=== PATIENT | male | born 1960 | race African-American/Black ===

== ENCOUNTER 2024-05-10 13:18 | Inpatient (IN) | payer BC ==
[~2024-05-10] VITALS: Ht 177.8 cm; Wt 157.4 kg
[2024-05-10] VITALS (9 sets, daily range): BP systolic 118–156; BP diastolic 57–100; TEMP 101–103; O2SAT 91–98
[2024-05-10 14:14] LABS: BASOPHILS % (AUTO) 0.5 % (0.0-2.0); HEMATOCRIT 38 % (39-51); HEMOGLOBIN 12.1 g/dL (13.5-17.5); LYMPHOCYTES # (AUTO) 0.5 K/uL (0.8-4.8); LYMPHOCYTES % (AUTO) 12.1 % (20.0-44.0); MEAN CORPUSCULAR HEMOGLOBIN 29 PG (26.0-33.0); MEAN CORPUSCULAR HGB CONC 32 g/dl (31.0-36.0); MEAN CORPUSCULAR VOLUME 91 fL (80-96); MONOCYTES # (AUTO) 0.6 K/uL (0.1-1.30); MONOCYTES % (AUTO) 16.5 % (2.0-12.0); NEUTROPHILS # (AUTO) 2.6 K/uL (1.8-8.9); NEUTROPHILS % (AUTO) 69.9 % (43.0-81.0); PLATELET COUNT (AUTO) 254 K/uL (150-450); RED BLOOD CELL COUNT(AUTO) 4.14 MIL/uL (4.5-6.0); RED CELL DISTRIBUTION WIDTH 14.9 % (11.5-15.0); WHITE BLOOD COUNT (AUTO) 3.7 K/uL (4.3-11.0)
[2024-05-10] MEDS ORDERED: FUROSEMIDE 40 MG/4 ML VIAL ONE (14:16)
[2024-05-10] MEDS: FUROSEMIDE 40 MG/4 ML VIAL IV ONE (14:21)
[2024-05-10 14:30] LABS: CALCIUM, SERUM 8.8 mg/dL (8.5-10.1); CARBON DIOXIDE 29 mmol/L (21-32); CHLORIDE 105 mmol/L (98-107); CREATININE 1.3 mg/dL (0.6-1.3); GLUCOSE 95 mg/dL (74-106); INR 1.3 (0.91-1.10); PARTIAL THROMBOPLASTIN TIME 30.9 SEC (24.3-34.3); POTASSIUM 3.8 mmol/L (3.5-5.1); PROTHROMBIN TIME 13.5 SECS (9.2-11.1); SODIUM SERUM 140 mmol/L (136-145); UREA NITROGEN, BLOOD 12 mg/dL (7-18)
[2024-05-10 14:42] LABS: ABG BASE EXCESS -0.7 mmol/L (-2.0-3.0); ABG OXYGEN SATURATION 94.7 % (94.0-98.0); ABG PCO2 35.1 mmHg (35.0-48.0); ABG PH 7.434 (7.350-7.450); ABG PO2 70.9 mmHg (83.0-108.0); ABG TOTAL HEMOGLOBIN 13.7 G/dL (13.5-17.5); COHb 1.1 % (0.5-1.5); MetHb 0.2 % (0.0-1.5); O2Hb 93.5 % (94.0-97.0); SITE, ABG LEFT RADIAL
[2024-05-10 14:44] LABS: NT-PRO BNP 19 pg/mL (0-125)
[2024-05-10] MEDS ORDERED: FLUT16SP BNOSTRILS (15:15)
[2024-05-10] MEDS ORDERED: ATOR20TA PO (15:15)
[2024-05-10] MEDS ORDERED: ALBU8.5H8 IH (15:15)
[2024-05-10] MEDS ORDERED: ONDANSETRON HCL/PF 4 MG/2 ML VIAL IVP PRN (16:30)
[2024-05-10] MEDS: ACETAMINOPHEN 325 MG TABLET PO PRN (18:15)
[2024-05-10 20:54] LABS: BASOPHILS % (AUTO) 0.3 % (0.0-2.0); EOSINOPHILS % (AUTO) 0.5 % (0.0-6.0); HEMATOCRIT 39 % (39-51); HEMOGLOBIN 12.7 g/dL (13.5-17.5); LYMPHOCYTES # (AUTO) 0.4 K/uL (0.8-4.8); LYMPHOCYTES % (AUTO) 10.6 % (20.0-44.0); MEAN CORPUSCULAR HEMOGLOBIN 30 PG (26.0-33.0); MEAN CORPUSCULAR HGB CONC 32 g/dl (31.0-36.0); MEAN CORPUSCULAR VOLUME 92 fL (80-96); MONOCYTES # (AUTO) 0.8 K/uL (0.1-1.30); MONOCYTES % (AUTO) 18.8 % (2.0-12.0); NEUTROPHILS # (AUTO) 2.9 K/uL (1.8-8.9); NEUTROPHILS % (AUTO) 69.8 % (43.0-81.0); PLATELET COUNT (AUTO) 234 K/uL (150-450); RED BLOOD CELL COUNT(AUTO) 4.29 MIL/uL (4.5-6.0); RED CELL DISTRIBUTION WIDTH 15.1 % (11.5-15.0); WHITE BLOOD COUNT (AUTO) 4.1 K/uL (4.3-11.0)
[2024-05-10] MEDS: LORATADINE 10 MG TABLET PO SCH (21:30)
[2024-05-10] MEDS: ALBUTEROL HALF STRENGTH 1.25 MG/3 ML VIAL.NEB NEB SCH (21:31)
[2024-05-10] MEDS: IPRATROPIUM NEB FS 0.5 MG/2.5 ML AMPUL.NEB NEB SCH (21:31)
[2024-05-10] MEDS: PANTOPRAZOLE 40 MG VIAL IV SCH (22:02)
[2024-05-10] MEDS: ENOXAPARIN SODIUM 40 MG/0.4 ML DISP.SYRIN SQ SCH (22:02)
[2024-05-10] MEDS: methylPREDNISolone SOD SUCC 125 MG/2ML VIAL IV ONE (22:02)
[2024-05-10 23:47] LABS: APPEARANCE,URINE CLEAR (CLEAR); BILIRUBIN,URINE 1+ (NEGATIVE); BLOOD, URINE TRACE-INTA Ery/uL (NEGATIVE); COLOR,URINE YELLOW (YELLOW); KETONES,URINE 1+ mg/dL (NEGATIVE); LEUKOCYTE ESTERASE ,URINE NEGATIVE (NEGATIVE); NITRITE, URINE NEGATIVE (NEGATIVE); PROTEIN,URINE TRACE mg/dl (NEGATIVE); UGLUCOSE NEGATIVE (NEGATIVE)
[2024-05-10 23:52] LABS: ADD URINE CULTURE NO; BACTERIA,URINE None seen /HPF (None Seen); RBC,URINE 0-2 /HPF (0-2); SQUAMOUS EPITHELIAL CELL,UR 0-2 /HPF (None Seen); WBC,URINE NONE SEEN /HPF (0-3)
[2024-05-11] VITALS (29 sets, daily range): BP systolic 127–154; BP diastolic 62–91; TEMP 97.9–98.8; O2SAT 94–100
[2024-05-11] MEDS: methylPREDNISolone SOD SUCC 40 MG/ML VIAL IV SCH (05:17)
[2024-05-11 06:38] LABS: WHITE BLOOD COUNT (AUTO) 2.8 K/uL (4.3-11.0)
[2024-05-11 06:39] LABS: BASOPHILS % (AUTO) 0.3 % (0.0-2.0); HEMATOCRIT 40 % (39-51); HEMOGLOBIN 13.1 g/dL (13.5-17.5); LYMPHOCYTES # (AUTO) 0.4 K/uL (0.8-4.8); LYMPHOCYTES % (AUTO) 13.5 % (20.0-44.0); MEAN CORPUSCULAR HEMOGLOBIN 30 PG (26.0-33.0); MEAN CORPUSCULAR HGB CONC 33 g/dl (31.0-36.0); MEAN CORPUSCULAR VOLUME 91 fL (80-96); MONOCYTES # (AUTO) 0.1 K/uL (0.1-1.30); MONOCYTES % (AUTO) 3.1 % (2.0-12.0); NEUTROPHILS # (AUTO) 2.4 K/uL (1.8-8.9); NEUTROPHILS % (AUTO) 83.1 % (43.0-81.0); PLATELET COUNT (AUTO) 242 K/uL (150-450); RED CELL DISTRIBUTION WIDTH 14.9 % (11.5-15.0)
[2024-05-11 07:01] LABS: CREATININE 1.3 mg/dL (0.6-1.3); MAGNESIUM 2.1 mg/dL (1.8-2.4); PHOSPHORUS 3.8 mg/dL (2.5-4.9); POTASSIUM 3.8 mmol/L (3.5-5.1)
[2024-05-11 10:02] LABS: ALBUMIN 3.9 g/dL (3.4-5.0); BILIRUBIN,DIRECT 0.3 mg/dL (0.0-0.2); BILIRUBIN,TOTAL 1.3 mg/dL (0.2-1.0); TOTAL PROTEIN, SERUM 8.3 g/dL (6.4-8.2)
[2024-05-12] VITALS (10 sets, daily range): BP systolic 107–131; BP diastolic 74–79; TEMP 98.4–99.1; O2SAT 94–99
[2024-05-12 06:48] LABS: BASOPHILS % (AUTO) 0.2 % (0.0-2.0); HEMATOCRIT 39 % (39-51); HEMOGLOBIN 12.6 g/dL (13.5-17.5); LYMPHOCYTES # (AUTO) 0.9 K/uL (0.8-4.8); LYMPHOCYTES % (AUTO) 13.5 % (20.0-44.0); MEAN CORPUSCULAR HEMOGLOBIN 30 PG (26.0-33.0); MEAN CORPUSCULAR HGB CONC 32 g/dl (31.0-36.0); MEAN CORPUSCULAR VOLUME 92 fL (80-96); MONOCYTES # (AUTO) 0.7 K/uL (0.1-1.30); MONOCYTES % (AUTO) 10.2 % (2.0-12.0); NEUTROPHILS # (AUTO) 5.3 K/uL (1.8-8.9); NEUTROPHILS % (AUTO) 76.1 % (43.0-81.0); PLATELET COUNT (AUTO) 234 K/uL (150-450); RED BLOOD CELL COUNT(AUTO) 4.26 MIL/uL (4.5-6.0); RED CELL DISTRIBUTION WIDTH 14.9 % (11.5-15.0); WHITE BLOOD COUNT (AUTO) 6.9 K/uL (4.3-11.0)
[2024-05-12 06:58] LABS: CALCIUM, SERUM 8.7 mg/dL (8.5-10.1); CREATININE 1.1 mg/dL (0.6-1.3); MAGNESIUM 2.4 mg/dL (1.8-2.4); PHOSPHORUS 2.4 mg/dL (2.5-4.9); POTASSIUM 4.2 mmol/L (3.5-5.1)
[2024-05-12 09:01] LABS: COHb 1.3 % (0.5-1.5); MetHb 0.3 % (0.0-1.5)
[2024-05-12 09:51] LABS: ABG BASE EXCESS 0.9 mmol/L (-2.0-3.0); ABG OXYGEN SATURATION 93.1 % (94.0-98.0); ABG PCO2 42.4 mmHg (35.0-48.0); ABG PH 7.403 (7.350-7.450); ABG PO2 64.2 mmHg (83.0-108.0); ABG TOTAL HEMOGLOBIN 14.1 G/dL (13.5-17.5); O2Hb 91.6 % (94.0-97.0); SITE, ABG RIGHT RADIAL
[2024-05-12] MEDS ORDERED: LORA10TA7 PO (13:06)
[2024-05-12] MEDS ORDERED: METH4TAB17 PO (13:06)
[2024-05-12] MEDS ORDERED: GUAI600T53 PO (13:06)
[2024-05-12] MEDS: GUAIFENESIN LA 600 MG TABLET.SA PO SCH (13:25)
[2024-05-12] MEDS: K PHOS NEUTRAL 250 MG TABLET PO ONE (16:47)
[2024-05-12] MEDS ORDERED: PANTOPRAZOLE 40 MG TABLET.DR PO SCH (21:00)
== END 2024-05-12 18:50 | disposition home or self-care (01) | DRG 190 ==
LOC: ER 13:23 → ICU 16:37 → TELE 05-11 17:42
PROVIDERS: ADMIT Nurse Practitioner Acute Care; ATTEND Nurse Practitioner Acute Care
PROC: 5A09357 Assistance with Respiratory Ventilation, Less than 24 Consecutive Hours, Continuous Positive Airway Pressure (ICD-10-PCS; principal; 2024-05-10)
DX: J44.1 Chronic obstructive pulmonary disease with (acute) exacerbation (principal); J96.01 Acute respiratory failure with hypoxia; D61.818 Other pancytopenia; Z68.42 Body mass index [BMI] 45.0-49.9, adult; D68.69 Other thrombophilia; K76.0 Fatty (change of) liver, not elsewhere classified; E66.01 Morbid (severe) obesity due to excess calories; G47.33 Obstructive sleep apnea (adult) (pediatric); Z20.822 Contact with and (suspected) exposure to COVID-19; Z99.81 Dependence on supplemental oxygen
CPT/HCPCS: 36415; 36600; 70220-TC; 71045-TC; 71250-TC; 80048-TC; 80061-TC; 80076-TC; 81001; 82803-TC; 83605-TC; 83735-TC; 83880; 84100-TC; 84484-TC; 85025-TC; 85378-TC; 85730-TC; 93307-TC; 93970-TC; 94799-TC; 97116-TC; 97530-TC; G0378; J1650; J1940; J2470; J2919